=== PATIENT | male | born 1995 | race Asian ===

== ENCOUNTER 2016-07-07 12:45 | Emergency (ER) | payer OTHER ==
[2016-07-07 12:53] VITALS: BP 130/67; PULSE 75; TEMP 98; BMI 23.1
--- NOTE | 2016-07-07 13:38 | PDOC ---
History of Present Illness - General Chief Complaint: Injury Stated Complaint: RT HAND INJURY Time Seen by Provider: 07/07/16 13:00 History Source: Patient - History of Present Illness Timing/Duration: reports: yesterday Location: reports: extremities Past History - Past Medical History Allergies/Adverse Reactions: Allergies Allergy/AdvReac Type Severity Reaction Status Date / Time No Known Allergies Allergy Verified 07/07/16 12:53 Home Medications: Ambulatory Orders NK [No Known Home Medication] 07/07/16 Other medical history: BLOOD TRANSFUSION - Psycho/Social/Smoking Cessation Hx Suicidal Ideation: No Smoking History: Never smoked Information on smoking cessation initiated: No Review of Systems - Review of Systems Constitutional: No: Chills, Fever Integumentary: No: Erythema *Physical Exam - Vital Signs Last Vital Signs Temp Pulse Resp BP Pulse Ox 98 F 75 18 130/67 98 07/07/16 12:51 07/07/16 12:51 07/07/16 12:51 07/07/16 12:51 07/07/16 12:51 - Physical Exam General Appearance: Yes: Appropriately Dressed. No: Apparent Distress HEENT: positive: Normal Voice Neck: positive: Supple Respiratory/Chest: negative: Respiratory Distress Integumentary: positive: Dry, Warm, Other (small avulsion laceration w/ moderate bleeding, no s/o infxn) Neurologic: positive: Fully Oriented, Alert, Normal Mood/Affect Medical Decision Making - Medical Decision Making 07/07/16 13:29 20 yo M, no sig hx, present for evaluation of finger laceration. Pt states while handling a knife yesterday afternoon, she accidentally "sliced" L 3rd digit. States wound had been bleeding ever since and here for evaluation. Tetanus UTD. Pt well sil w/ small avulsion to distal phalanx of L 3rd digit. No s/o infection. Local wound care w/ compression dressing placed and pt discharged in stable condition *DC/Admit/Observation/Transfer Diagnosis at time of Disposition: Laceration of finger Qualifiers: Encounter type: initial encounter Qualified Code(s): S61.219A - Laceration without foreign body of unspecified finger without damage to nail, initial encounter - Discharge Dispostion Disposition: HOME Condition at time of disposition: Good - Patient Instructions Printed Discharge Instructions: DI for Minor Laceration Additional Instructions: Keep compression on until bleeding resolves. Apply bacitracin or neosporin daily for the next 7 days Return to ED for redness, discharge or fever
== END 2016-07-07 13:41 | disposition home or self-care (01) ==
LOC: JERFT 12:45
DX: S61.203A Unspecified open wound of left middle finger without damage to nail, initial encounter (principal); W26.0XXA Contact with knife, initial encounter; Y93.89 Activity, other specified; Y92.89 Other specified places as the place of occurrence of the external cause
CPT/HCPCS: 99281-25